=== PATIENT | female | born 1945 | race Caucasian/White ===

== ENCOUNTER 2016-09-20 14:39 | Emergency (ER) | payer OTHER ==
[~2016-09-20] VITALS: Wt 67.5 kg
[~2016-09-20 14:39] MED LIST: IBUP400T22 PO; TRAM50TA2 PO
[2016-09-20 16:49] LABS: URINE BLOOD (Dip) POC Negative (NEGATIVE)
[2016-09-20] MEDS ORDERED: MICO45CR68 VAG (17:09)
--- NOTE | 2016-09-20 17:42 | ERD ---
ER Documentation Chief Complaint Date/Time DATE: 09/20/16 TIME: 17:37 Chief Complaint itchiness to genital area HPI Patient is a 70-year-old female who presents to the ED with vaginal itchiness and irritation for 2 months. She states that she went to her primary care provider and was given a cream. She states that it did not help. She denies sexual intercourse for the last 10 years. She states that her and she has not had sex since his . She denies urinary symptoms, dysuria urgency. She denies abnormal vaginal discharge. She states that she has an appointment with her river tester in 2 months. Denies fever or chills. Denies abdominal pain, nausea, vomiting or diarrhea. No other complaints. ROS All systems reviewed and are negative except as per history of present illness. Medications Home Meds Active Scripts Miconazole Nitrate* (Monistat 7*) 45 Gm Cream.appl, 1 APPFUL VAG HS for 7 Days, TUB Prov:ALICIA GORDON PA-C 09/20/16 Ibuprofen* (Motrin*) 400 Mg Tab, 400 MG PO Q6, #30 TAB Prov:PORTIA SEGOVIA NP 04/22/16 Tramadol HCl (Tramadol HCl) 50 Mg Tablet, 50 MG PO Q4 Y for PAIN, #20 TAB Prov:PORTIA SEGOVIA NP 04/22/16 Allergies Allergies: Coded Allergies: No Known Allergy (Unverified , 09/20/16) PMhx/Soc History of Surgery: No Anesthesia Reaction: No Hx Neurological Disorder: No Hx Respiratory Disorders: No Hx Cardiac Disorders: Yes (Hypertension) Hx Psychiatric Problems: No Hx Miscellaneous Medical Probl: Yes (Diabetes, arthritis) Hx Alcohol Use: No Hx Substance Use: No Hx Tobacco Use: No Smoking Status: Never smoker FmHx Family History: No coronary disease, No diabetes, No other Physical Exam Vitals Vital Signs Date Time Temp Pulse Resp B/P Pulse Ox O2 Delivery O2 Flow Rate FiO2 09/20/16 14:40 97.3 86 20 144/67 100 Physical Exam GENERAL: Well-developed, well-nourished female. Appears in no acute distress. NECK: Supple. No lymphadenopathy or thyromegaly. No meningismus. negative kernig. negative brudinski. LUNG: Clear to auscultation bilaterally. No rhonchi, wheezing, rales or coarse breath sounds. HEART: Regular rate and rhythm. No murmurs, rubs or gallops. 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 no warmth, fluctuance or induration. no erythema. no discharge. no signs of infection. SKIN: Normal color. Warm and dry. No rashes or lesions. Capillary refill < 2 seconds Results 24 hrs Laboratory Tests Test 09/20/16 16:51 Bedside Urine Blood Negative Bedside Urine Glucose (UA) Negative Bedside Urine Ketones (LAB) Negative Bedside Urine Leukocyte Esterase (L Negative Bedside Urine Nitrite (LAB) Negative Bedside Urine Protein (LAB) Negative Bedside Urine pH (LAB) 6.0 Procedures/MDM ER COURSE: I kept the patient and/or family informed of laboratory and diagnostic imaging results throughout the emergency room course. MEDICAL DECISION MAKING: This is a 70-year-old who presents with vaginal irritation and itching. Vital signs were reviewed. Patient is afebrile. Patient is not hypoxic. Patient likely has vaginal itching of unknown etiology, likely related to postmenopausal symptoms. Low suspicion for necrotizing fasciitis, SJS, toxic epidermal necrolysis, Kawasaki, erythema multiforme, gangrene, scarlet fever, meningococcemia, sepsis, anaphylaxis, sepsis, deep space infection, or foreign body. Low suspicion for STD. Urine dip was negative for nitrites, leukocytes or hematuria DISCHARGE: At this time, patient is stable for discharge and outpatient management with no new complaints during the ER course. Patient was sent home with Nirmal and to follow-up with river tester. Names of river tester in the area were given to patient to make an earlier appointment.. Patient will be discharged home with instructions to recheck for new or worsening symptoms such as fever, nausea, weakness, LOC and to follow up with primary care in the next 1-2 days. Patient was advised to return to the ER for any new or worsening symptoms. Plan was discussed and patient and/or family understands and agrees. Home instructions were given. Departure Diagnosis: Primary Impression: Vaginal itching Condition: Stable Patient Instructions: Menopause: Effects of Low Estrogen Levels Referrals: SAEID GARCIA MD,DALTON SOL MARIE H MD [facility] [place] [id number] [id number] OFFICE FAX , SAEID [address] [place], [place] [id number] DR. HUTTON, [place] [address] [place] [address] DR STEARNS, [facility] [address] [facility], [address], [place] [address] DR VALENTINLIANET, [facility] [address] [place] [address] [address] [address] [place] [address] [facility] [id number] - DR STEVENSON, AROLDO [address], [place] [address] DR CATES, LISBET [address] [facility]. [address], [place] [address] DR TRACY, [facility] [address] [place], [place] [id number] [facility] Hours: 8:00 am - 5:00 pm Additional Instructions: Llame al doctor MAANA y sandro malgorzata BAYLEE PARA DENTRO DE 1-2 CAMPBELL.Dgale a la secretaria que nosotros le instruimos hacer esta baylee.Avise o llame si yancey condicin se empeora antes de la baylee. Regresa aqui si peor o no mejor. Sigue con doctor especial para mas evaluacion. ALICIA GORDON PA-C Sep 20, 2016 17:42
== END 2016-09-20 17:39 | disposition home or self-care (01) ==
LOC: FTE 14:39
DX: N89.8 Other specified noninflammatory disorders of vagina (principal); I10 Essential (primary) hypertension; E11.9 Type 2 diabetes mellitus without complications
CPT/HCPCS: 81003; Z7502; 99283